=== PATIENT | male | born 1940 | race Caucasian/White ===

== ENCOUNTER 2021-03-17 12:27 | Inpatient (IN) | payer MEDICARE, OTHER ==
[~2021-03-17] VITALS: Ht 172.7 cm; Wt 84.1 kg
[2021-03-17 13:33] LABS: BASOPHILS ABSOLUTE AUTO 0.04 K/mm3 (0.00-0.23); BASOPHILS PERCENT AUTO 0 % (0-2); EOSINOPHILS PERCENT AUTO 0 % (0-6); Hematocrit 50.5 % (37.0-53.0); Hemoglobin 17.3 g/dL (13.5-17.5); IMMATURE GRAN ABSOLUTE AUTO 0.11 K/mm3 (0.00-0.10); IMMATURE GRAN PERCENT AUTO 1 % (0-1); LYMPHOCYTES ABSOLUTE AUTO 0.49 K/mm3 (0.84-5.20); LYMPHOCYTES PERCENT AUTO 3 % (21-46); MONOCYTES ABSOLUTE AUTO 1.52 K/mm3 (0.16-1.47); MONOCYTES PERCENT AUTO 8 % (4-13); Mean Corpuscular HGB 29.7 pg (26.0-34.0); Mean Corpuscular HGB Conc 34.3 g/dL (31.5-36.5); Mean Corpuscular Volume 87 fL (80-100); Mean Platelet Volume 8.7 fL (9.1-12.4); NEUTROPHILS ABSOLUTE AUTO 17.79 K/mm3 (1.96-9.15); NEUTROPHILS PERCENT AUTO 89 % (41-73); Platelet Count 184 K/mm3 (150-400); RDW Coefficient Variation 13.2 % (11.7-14.2); Red Blood Cell Count 5.83 M/mm3 (4.30-5.90); White Blood Cell Count 19.95 K/mm3 (4.00-11.30)
[2021-03-17 13:56] LABS: Alanine Aminotransfer (ALT/SGP 20 U/L (12-78); Albumin, Blood 3.8 g/dL (3.4-5.0); Albumin/Globulin Ratio 1.2 (0.8-1.8); Alk Phos 50 U/L (50-136); Anion Gap 6 mmol/L (6-16); Aspartate Aminotrans (AST/SGOT 22 U/L (12-37); Bilirubin, Total 0.7 mg/dL (0.1-1.0); Blood Urea Nitrogen 14 mg/dL (8-24); Bun/Creatinine Ratio 18.5 (12.0-20.0); CO2, Blood 26 mmol/L (21-32); Calcium, Blood 8.7 mg/dL (8.5-10.1); Chloride, Blood 105 mmol/L (98-108); Creatinine, Blood 0.76 mg/dL (0.60-1.20); Globulin, Blood 3.2 g/dL (2.2-4.0); Glomerular Filtration Rate >60 (60-); Glucose, Blood 108 mg/dL (70-99); Potassium, Blood 4.2 mmol/L (3.5-5.5); Sodium, Blood 137 mmol/L (136-145)
[2021-03-17] MEDS ORDERED: MOBIC15 MG PO (15:16)
[2021-03-17] MEDS ORDERED: ZOCOR20 MG PO (15:16)
[2021-03-17] MEDS ORDERED: LEVSOD100 PO (15:17)
[2021-03-17] MEDS ORDERED: PANT40 PO (15:17)
[2021-03-17] MEDS ORDERED: TRAZ100 PO (15:17)
[2021-03-17] MEDS ORDERED: ZYRTEC10 M2 PO (15:39)
[2021-03-17] MEDS ORDERED: DYMISTA NASAL S23 G1 (15:39)
[2021-03-17] MEDS ORDERED: HYDHCL25 PO (15:40)
[2021-03-17] MEDS ORDERED: Hair, Skin & N1 EACH PO (15:40)
[2021-03-17] MEDS ORDERED: OXYC10TA19 PO (15:41)
[2021-03-17] MEDS ORDERED: HYDR1TAB94 PO (15:42)
[2021-03-17] MEDS ORDERED: BACL10 PO (16:00)
[2021-03-17] MEDS ORDERED: CALCIUM 600 +1 EA11 PO (16:00)
--- NOTE | 2021-03-17 17:50 | NUR ---
PT ARRIVED TO [facility] FLOOR AOX4 AND COOPERATIVE OF CARE. PT IS A STANDBY DUE TO FEELING WEAK. PT CAN CALL APPROPRIATELY. PT DENIES PAIN AT THIS TIME. CALL LIGHT IS WITHIN REACH WILL CONTINUE TO MONITOR.
--- NOTE | 2021-03-17 20:46 | NUR ---
ASSUMED CARE. AOX3, FOLLOWS DIRECTION WELL. DENIES ANY PAIN OR DISCOMFORT AT THIS TIME. STATES HE JUST DOES NOT FEEL GOOD. REPORTS HEADACHE, 4/10 AT THIS TIME. NO NAUSEA, DID HAVE SOME TODAY. BT HYPOACTIVE. TENDER ON PALPITATIONS. ABLE TO GET TO SIDE OF BED TO USE URINAL. IVF INFUSING WITH NO PROBLEM. URINE CLEAR YELLOW. SPOKE TO DR. GONZALEZ WHO ORDERED HIDA SCAN IN AM, AND CLEAR LIQUIDS. GAVE JELLOW AND CRANBERRY JUICE. WILL CONTINUE TO MONITOR. CALL LIGHT IN REACH.
--- NOTE | 2021-03-17 21:21 | NUR ---
TYLENOL GIVE FOR HEADACHE. CONTINUES TO SAY "I DON'T KNOW WHATS GOING ON" BUT IS NOT ABLE TO TELL ME WHAT HE MEANS BY THIS. EXPLAINED TO HIM WHAT IS GOING ON WITH HIM BUT THE HEADACHE IS CAUSING HIM TO BE FUSSY AT THIS TIME. WILL CONTINUE TO MONITOR.
--- NOTE | 2021-03-17 22:00 | NUR ---
HEADACHE IS MUCH BETTER HE STATES. DENIES ANY OTHER NEEDS AT THIS TIME. TOLERATED THE JELLO AND JUICE. WILL CONTINUE TO MONITOR.
--- NOTE | 2021-03-18 | NUR ---
HEADACHE ALMOST GONE HE STATED. STATES HE IS FEELING BETTER. NO NAUSEA NO PAIN. DENIES ANY NEEDS. CALL LIGHT IN REACH. WILL CONTINUE TO MONITOR.
--- NOTE | 2021-03-18 02:00 | NUR ---
PATIENT SLEEPING WITH NO SIGNS OF DISTRESS. WILL CONTINUE TO MONITOR.
--- NOTE | 2021-03-18 04:30 | NUR ---
LAB IN ROOM. STATES HE EMPTIED A FULL URINAL. EMPTIED ANOTHER HALF URINAL. AMOUNT RECORDED. STATES HE IS FEELING FINE THIS MORNING. WILL CONTINUE TO MONITOR.
[2021-03-18 04:58] LABS: International Normalized Ratio 1.16; Prothrombin Time Results 12.4 Sec (9.7-11.5)
[2021-03-18 05:04] LABS: BASOPHILS ABSOLUTE AUTO 0.07 K/mm3 (0.00-0.23); BASOPHILS PERCENT AUTO 0 % (0-2); EOSINOPHILS ABSOLUTE AUTO 0.01 K/mm3 (0.00-0.68); EOSINOPHILS PERCENT AUTO 0 % (0-6); Hematocrit 48.6 % (37.0-53.0); IMMATURE GRAN ABSOLUTE AUTO 0.11 K/mm3 (0.00-0.10); IMMATURE GRAN PERCENT AUTO 1 % (0-1); LYMPHOCYTES ABSOLUTE AUTO 0.75 K/mm3 (0.84-5.20); LYMPHOCYTES PERCENT AUTO 4 % (21-46); MONOCYTES PERCENT AUTO 9 % (4-13); Mean Corpuscular HGB 30.1 pg (26.0-34.0); Mean Corpuscular Volume 86 fL (80-100); Mean Platelet Volume 9.1 fL (9.1-12.4); NEUTROPHILS PERCENT AUTO 87 % (41-73); Platelet Count 171 K/mm3 (150-400); RDW Coefficient Variation 13.2 % (11.7-14.2); RDW Standard Deviation 41.5 fL (35.1-46.3); Red Blood Cell Count 5.64 M/mm3 (4.30-5.90); White Blood Cell Count 21.34 K/mm3 (4.00-11.30)
[2021-03-18 05:25] LABS: Alanine Aminotransfer (ALT/SGP 19 U/L (12-78); Albumin, Blood 3.5 g/dL (3.4-5.0); Albumin/Globulin Ratio 1.1 (0.8-1.8); Alk Phos 51 U/L (50-136); Anion Gap 6 mmol/L (6-16); Aspartate Aminotrans (AST/SGOT 20 U/L (12-37); Bilirubin, Total 1.1 mg/dL (0.1-1.0); Blood Urea Nitrogen 12 mg/dL (8-24); Bun/Creatinine Ratio 14.6 (12.0-20.0); CO2, Blood 25 mmol/L (21-32); Calcium, Blood 8.9 mg/dL (8.5-10.1); Chloride, Blood 109 mmol/L (98-108); Creatinine, Blood 0.82 mg/dL (0.60-1.20); Globulin, Blood 3.2 g/dL (2.2-4.0); Glomerular Filtration Rate >60 (60-); Glucose, Blood 103 mg/dL (70-99); Magnesium, Blood 1.8 mg/dL (1.6-2.4); Potassium, Blood 3.7 mmol/L (3.5-5.5); Sodium, Blood 140 mmol/L (136-145); Total Protein, Blood 6.7 g/dL (6.4-8.2)
--- NOTE | 2021-03-18 06:47 | NUR ---
SHIFT SUMMARY: AOX3, MILD WEAKNESS IN THE LEGS BUT IS ABLE TO GET AROUND. SOME INCONTIENCE T/O THE NIGHT WHEN USING THE URINAL. PAIN STARTED THIS AM, TYLENOL WAS GIVEN. DR. RAMIREZ CALLED AND ORDERED A HIDA SCAN FOR TODAY WHICH WILL NOT BE TILL 1400 IN THE AFTERNOON. NPO AFTER MIDNIGHT. DID HAVE SOME CLEAR LIQUID LAST NIGHT AND TOLERATED IT WELL. NO NAUSEA OR PAIN. IVF INFUSING T/O THE NIGHT. HYPERTENSIVE THIS AM WILL GIVE SOME HYDRALAZINE FOR IT. DENIED ANY CHEST PAIN. ABDOMIN TENDER WITH HYPOACTIVE BT. ANTIBOTICS GIVEN. SLEPT WELL OFF AND ON. CALL LIGHT IN REACH. WILL REPORT TO DAYSHIFT.
--- NOTE | 2021-03-18 11:49 | NUR ---
Surgical site prepped with 2% Chlorhexidine cloth wipe. History, Chart, Medications and Allergies reviewed before start of procedure. Lungs clear T/O to Auscultation. Patient confirms NPO status and agrees with scheduled surgery. Pre-Op teaching done. Pt verbalizes understanding.
--- NOTE | 2021-03-18 12:28 | NUR ---
03/18/21 1228 Bebeto Batista PT ON SCHEDULED ANTIBIOTICS AND RECIEVED PRIOR TO ARRIVAL TO OR.
--- NOTE | 2021-03-18 16:00 | NUR ---
INITIAL ASSESSMENT PATIENT ARRIVED TO UNIT AT 1520 FROM OR AFTER LAPAROSCOPIC ROGERIO. PATIENT VERY ANXIOUS, AGITATED, PULLING AT EVERYTHING UPON ARRIVAL. PATIENT TRANSFERRED TO ICU FROM MEDICAL FLOOR TO CLEAR FROM MEDICATIONS AFTER ROGERIO THAT ARE MAKING HIM CONFUSED AND AGITATED. RESTRAINTS APPLIED. PATIENT HAS TEMP OF 99.7 DEGREES FAHRENHEIT. PATIENT HAS VERY GOOD STRENGTH. PATIENT SATTING 90% AND GREATER ON RA. LUNGS CLEAR IN UPPER LOBES AND DIMINISHED IN LOWER LOBES. PATIENT IN SR TO ST WITH BBB. HR 90S TO 1-TEENS. SBP 160S TO 180S. SCDS PLACED. ABDOMEN MILDLY DISTENDED, TENDER, WITH NORMOACTIVE BS NOTED. DATE OF LAST BM ON THE . PATIENT NPO AT THIS TIME PER CONFUSION AND AGITATION. 4 LAPAROSCOPIC PUNCTURES AND DRESSINGS TO ABD. AURELIO DRAIN TO RLQ PUNCTURE; DRAINING SANGUINEOUS FLUID. AFTER MUCH DIFFICULTY, ABLE TO HELP PATIENT VOID 50 MLS OF BLOODY URINE INTO URINAL. ATTENDS IN PLACE. BLES COOL. FACE REDDENED; REST OF BODY PALE IN COLOR. BED LOW, CALL LIGHT IN REACH. AT BEDSIDE. WILL CONTINUE TO MONITOR PATIENT FREQUENTLY THROUGHOUT SHIFT.
--- NOTE | 2021-03-18 16:08 | NUR ---
PT WENT TO THE OR THIS MORNING FOR SURGERY. HE WAS TRANSFERED TO ICU. REPORT GIVEN TO ICU NURSE
--- NOTE | 2021-03-18 17:20 | NUR ---
DR. LAWRENCE CALLED AND INFORMED THAT PATIENT VERY AGITATED IN BED AND APPEARS TO HAVE TO VOID. PRIMARY NURSE AND CHARGE NURSE HELPED WITH URINAL. 50 MLS OF BLOODY URINE ABLE TO BE CAUGHT IN URINAL. PATIENT TOO AGITATED TO TRY AND CONTINUE. ORDER FOR SARAVIA OBTAINED.
[2021-03-18 17:37] LABS: Source, Urine Catheter
[2021-03-18 17:46] LABS: Appearance, Urine Clear (Clear); Bilirubin, Urine Neg (Neg); Blood, Urine 1+ (Neg); Color, Urine Yellow (P-Yellow); Glucose Qualitative, Urine Neg (Neg); Ketones, Urine 1+ (Neg); Leukocyte Esterase, Urine Neg (Neg); Nitrite, Urine Neg (Neg); Protein, Urine 2+ (Neg); Urobilinogen, Urine NORM (Normal); pH, Urine 6.5 (5.0-8.0)
[2021-03-18 18:11] LABS: Bacteria Not Seen /hpf; Red Blood Cells, Urine 0-2 /hpf (0-2); Squamous Epithelial Cells Rare /hpf (Few); White Blood Cells, Urine 0-2 /hpf (0-5)
--- NOTE | 2021-03-18 18:50 | NUR ---
DR. ESPINOSA AND DR. HERRERATRATE TO ROOM TO CHECK UP ON PATIENT. UPDATED. ORDERS RECEIVED FOR LABS.
--- NOTE | 2021-03-18 19:10 | NUR ---
SHIFT SUMMARY PATIENT HAS REMAINED CONFUSED AND AGITATED. PATIENT CONTINUALLY BE REORIENTED TO SITUATION, PLACE, EVENT, DATE, PERSON, ETC. PATIENT IS VERY STRONG AND CONTINUED TO FIGHT AGAINST RESTRAINTS AND PULL IMPORTANT LINES AND CORDS. PATIENT HAD TMAX OF 100.3 DEGREES FAHRENHEIT. PATIENT HAS REMAINED SATTING 90% AND GREATER. LUNGS CLEAR AND DIMINISHED UPON ARRIVAL AND SINCE HAVE BECOME WHEEZY. BOTH DR. ESPINOSA AND DR. HERRERATRATE AWARE OF WHEEZING AND INCREASED WORK OF BREATHING FROM PATIENT FIGHTING RESTRAINTS. PATIENT HAS REMAINED SR TO ST WITH BBB, HR 90S TO 1-TEENS. SBP 130S TO 180S. PATIENT RIPPED SCDS OFF. NO BM THIS SHIFT. PATIENT REMAINED NPO. AURELIO DRAIN DRAINING LITTLE AMOUNT OF SANGIUNEOUS FLUID. NS INFUSING AT 100 MLS/ HOUR. PATIENT RECEIVING FLAGYL AND LEVAQUIN. HERE TO VISIT FOR SEVERAL HOURS AND [place] ST[place] IF NEED HER. NUMBER ON PAPER CHART. REPORT HAS BEEN GIVEN TO ASSUMING BULL WHEEL WORKER NURSE.
--- NOTE | 2021-03-18 19:25 | NUR ---
UPDATE / DR ESPINOSA: THE PT IS INCREASINGLY AGITATED, PULLING AT ALL LINES & TUBES DESPITE BILAT SOFT WRIST RESTRAINTS IN PLACE. HE IS ANGRY AT STAFF REGARDING RESTRAINTS & DIFFICULT TO REDIRECT AT THIS TIME. THERE IS A LARGE AMNT OF SS DRAINAGE NOTED ON THE PT's BEDSHEET & ON FURTHER EVALUATION, IT IS NOTED THAT THE PT HAS PULLED HIS SANTIAGO DRAIN APPROX 3 INCHES FROM HIS ABDOMEN. THE SUTURE REMAINS IN PLACE & A LARGE LOOP IS NOTED IN THE TUBING. THE BULB IS FULLY INFLATED & IS NO LONGER SUCTIONING. CALL TO DR ESPINOSA REGARDING THIS INCIDENT. HE STS TO REDRESS THE PT's SANTIAGO INSERTION SITE & TO BE PREPARED FOR SOME DRAINAGE TO COME FROM THE SITE TONIGHT, CHANGE THE DRESSING PRN.
[2021-03-18 20:15] LABS: BASOPHILS ABSOLUTE AUTO 0.04 K/mm3 (0.00-0.23); BASOPHILS PERCENT AUTO 0 % (0-2); EOSINOPHILS PERCENT AUTO 0 % (0-6); Hematocrit 44.2 % (37.0-53.0); Hemoglobin 15.2 g/dL (13.5-17.5); IMMATURE GRAN ABSOLUTE AUTO 0.11 K/mm3 (0.00-0.10); IMMATURE GRAN PERCENT AUTO 1 % (0-1); LYMPHOCYTES ABSOLUTE AUTO 0.69 K/mm3 (0.84-5.20); LYMPHOCYTES PERCENT AUTO 3 % (21-46); MONOCYTES ABSOLUTE AUTO 1.85 K/mm3 (0.16-1.47); MONOCYTES PERCENT AUTO 9 % (4-13); Mean Corpuscular HGB 29.7 pg (26.0-34.0); Mean Corpuscular HGB Conc 34.4 g/dL (31.5-36.5); Mean Corpuscular Volume 86 fL (80-100); Mean Platelet Volume 8.8 fL (9.1-12.4); NEUTROPHILS PERCENT AUTO 87 % (41-73); Platelet Count 177 K/mm3 (150-400); RDW Coefficient Variation 13.5 % (11.7-14.2); RDW Standard Deviation 42.7 fL (35.1-46.3); Red Blood Cell Count 5.12 M/mm3 (4.30-5.90); White Blood Cell Count 20.49 K/mm3 (4.00-11.30)
[2021-03-18 20:32] LABS: Alanine Aminotransfer (ALT/SGP 37 U/L (12-78); Albumin, Blood 3.1 g/dL (3.4-5.0); Alk Phos 51 U/L (50-136); Anion Gap 5 mmol/L (6-16); Aspartate Aminotrans (AST/SGOT 63 U/L (12-37); Bilirubin, Total 0.8 mg/dL (0.1-1.0); Blood Urea Nitrogen 14 mg/dL (8-24); Bun/Creatinine Ratio 15.5 (12.0-20.0); CO2, Blood 24 mmol/L (21-32); Calcium, Blood 8.5 mg/dL (8.5-10.1); Chloride, Blood 110 mmol/L (98-108); Creatinine, Blood 0.91 mg/dL (0.60-1.20); Globulin, Blood 3.1 g/dL (2.2-4.0); Glomerular Filtration Rate >60 (60-); Glucose, Blood 97 mg/dL (70-99); Potassium, Blood 3.6 mmol/L (3.5-5.5); Sodium, Blood 139 mmol/L (136-145); Total Protein, Blood 6.2 g/dL (6.4-8.2)
--- NOTE | 2021-03-19 03:14 | NUR ---
PT UPDATE PT UP TO BATHROOM TO ATTEMPT TO HAVE BM, UNSUCCESSFULLY. PT C/O OF CONSTIPATION X2 DAYS. CALL PLACED TO MD MINOR. MD MINOR W/ ORDERS FOR BOWEL CARE.
[2021-03-19 04:56] LABS: BASOPHILS ABSOLUTE AUTO 0.05 K/mm3 (0.00-0.23); BASOPHILS PERCENT AUTO 0 % (0-2); EOSINOPHILS ABSOLUTE AUTO 0.01 K/mm3 (0.00-0.68); EOSINOPHILS PERCENT AUTO 0 % (0-6); Hemoglobin 14.9 g/dL (13.5-17.5); IMMATURE GRAN ABSOLUTE AUTO 0.08 K/mm3 (0.00-0.10); IMMATURE GRAN PERCENT AUTO 1 % (0-1); LYMPHOCYTES ABSOLUTE AUTO 0.92 K/mm3 (0.84-5.20); LYMPHOCYTES PERCENT AUTO 6 % (21-46); MONOCYTES ABSOLUTE AUTO 1.29 K/mm3 (0.16-1.47); MONOCYTES PERCENT AUTO 8 % (4-13); Mean Corpuscular HGB 29.3 pg (26.0-34.0); Mean Corpuscular HGB Conc 33.9 g/dL (31.5-36.5); Mean Corpuscular Volume 86 fL (80-100); Mean Platelet Volume 8.8 fL (9.1-12.4); NEUTROPHILS ABSOLUTE AUTO 14.04 K/mm3 (1.96-9.15); NEUTROPHILS PERCENT AUTO 86 % (41-73); Platelet Count 156 K/mm3 (150-400); RDW Coefficient Variation 13.4 % (11.7-14.2); RDW Standard Deviation 43.2 fL (35.1-46.3); Red Blood Cell Count 5.09 M/mm3 (4.30-5.90); White Blood Cell Count 16.39 K/mm3 (4.00-11.30)
[2021-03-19 05:14] LABS: Alanine Aminotransfer (ALT/SGP 39 U/L (12-78); Albumin, Blood 2.9 g/dL (3.4-5.0); Albumin/Globulin Ratio 0.9 (0.8-1.8); Alk Phos 45 U/L (50-136); Anion Gap 7 mmol/L (6-16); Aspartate Aminotrans (AST/SGOT 54 U/L (12-37); Bilirubin, Total 0.8 mg/dL (0.1-1.0); Blood Urea Nitrogen 13 mg/dL (8-24); Bun/Creatinine Ratio 15.3 (12.0-20.0); CO2, Blood 24 mmol/L (21-32); Calcium, Blood 8.2 mg/dL (8.5-10.1); Chloride, Blood 109 mmol/L (98-108); Creatinine, Blood 0.85 mg/dL (0.60-1.20); Globulin, Blood 3.2 g/dL (2.2-4.0); Glomerular Filtration Rate >60 (60-); Glucose, Blood 111 mg/dL (70-99); Magnesium, Blood 1.8 mg/dL (1.6-2.4); Phosphorus, Blood 1.5 mg/dL (2.5-4.9); Potassium, Blood 3.6 mmol/L (3.5-5.5); Sodium, Blood 140 mmol/L (136-145); Total Protein, Blood 6.1 g/dL (6.4-8.2)
--- NOTE | 2021-03-19 05:25 | NUR ---
TRANFER NOTE PT STARTED OFF SHIFT CONFUSED, AGITATED, PULLING AT LINES. EDUCATED PT ON WHY IT IS IMPORTANT TO NOT PULL AT LINES. REMOVED WRIST RESTRAINTS AT APPROX 2000, PT STATED, "TAKE THESE OFF AND I PROMISE I WONT PULL AT ANYTHING." PT REMAINED ALERT, DID NOT PULL AT LINES. AT 2200, REMOVED SONIA VEST. PT ORIENTED AT THIS TIME. SP02>94% ON RA. TELEMETRY READS SR/ST W/ BBB. HR 90'S. PT HAD ELEVATED BP, MEDICATED W/ HYDRALAZINE PER EMAR X1 THIS SHIFT. PT C/O OF ABD PAIN "WHERE THEY DID MY SURGERY." MEDICATED W/ NORCO X1 THIS SHIFT. PT C/O OF CONSTIPATION, SEE PREVIOUS NOTE. SARAVIA CATHETER DRAINING CLEAR YELLOW URINE TO GRAVITY. PT HAS AURELIO DRAIN, SUCTION NOT WORKING D/T PT PULLING, SEE PREVIOUS NOTE. DRESSING CHANGED X2 THIS SHIFT, DRESSING SATURATED W/ SS FLUID. FLUIDS INFUSING PER EMAR. PT DID NOT SLEEP MUCH DURING NIGHT. REPORT GIVEN TO SURGICAL NURSE. WILL TRANSFER AT THIS TIME.
--- NOTE | 2021-03-19 06:10 | NUR ---
PT TRANSFERRED FROM ICU. VSS ON RA. DENIES PAIN. DENIES CP/PRESSURE, SOB. NO N/V. DRAIN IN PLACE, BULB NOT COMPRESSED. DRESSING IN PLACE CDI. PT A/OX4. IV FLUIDS CONTINUED. ORIENTED TO ROOM, CALL LIGHT W/IN REACH.
--- NOTE | 2021-03-19 18:42 | NUR ---
POTENTIAL THROMBOPHLEBITIS. PT CALLED THIS RN TO NOTIFY THAT REDNESS WAS NOTED TO VEIN. K PHOS AND LEVAQUIN INFUSING. INFUSIONS STOPPED AND IV REMOVED. STATES TO INFUSE THESE MEDICATIONS ONE AT A TIME, ONCE NEW IV IS OBTAINED.
--- NOTE | 2021-03-19 22:53 | NUR ---
SEBASTIAN ONEAL OBTAINED PER Brittany YOUNG ICU SUPERVISOR INDUSTRIAL GARMENT-I STARTED BALANCE OF POTASSIUM PHOS.WILL START LEVOQUIN AFTER K IS COMPLETED.
--- NOTE | 2021-03-20 02:05 | NUR ---
PT C/O HALLUCINATIONS X 2 DAYS. I REVIEWED PROGRESS NOTES WITH SOME MENTION OF AMS.UNCLEAR ETIOLOGY.PT DRINKS BEER, BUT DENIES DAILY DRINKING.TAKES LUCINDA AT HOME, BUT REPORTS MAX DOSE IS OCC BID.I SPOKE WITH DR MINOR WITH THOUGHTS OF POSSIBLE CWA.PT FLUCTUATES SOME ON THE AMNT HE DRINKS, BUT CONSISTENTLY DENIES DAILY DRINKING. PT RECEIVED BALANCE OF LEVAQUIN ONCE IV WAS OBTAINED AND BALANCE OF K WAS ALREADY INFUSED.PT HAS BEEN ON LEVAQUIN DAILY. PHARMACIST REPORTS THAT IT IS POSSIBLE FOR LEVAQUIN TO CAUSE CONFUSION,HALLUCINATIONS AND AGGITATION.I PLACED CALL TO DR MINOR REGARDING THIS AND WAITING RETURN CALL.
--- NOTE | 2021-03-20 02:17 | NUR ---
DR. MINOR INFORMED THAT HALLUCINATIONS COULD POSSIBLY BE CAUSED BY IV LEVAQUIN. NO NEW ORDERS TO DISCONTINUE LEVAQUIN AT THIS TIME.
[2021-03-20 04:40] LABS: Hematocrit 42.1 % (37.0-53.0); Hemoglobin 14.7 g/dL (13.5-17.5); Mean Corpuscular HGB 30.1 pg (26.0-34.0); Mean Corpuscular HGB Conc 34.9 g/dL (31.5-36.5); Mean Corpuscular Volume 86 fL (80-100); Mean Platelet Volume 8.8 fL (9.1-12.4); Platelet Count 169 K/mm3 (150-400); RDW Coefficient Variation 13.6 % (11.7-14.2); RDW Standard Deviation 43.1 fL (35.1-46.3); Red Blood Cell Count 4.89 M/mm3 (4.30-5.90); White Blood Cell Count 10.89 K/mm3 (4.00-11.30)
[2021-03-20 05:07] LABS: Alanine Aminotransfer (ALT/SGP 38 U/L (12-78); Albumin, Blood 2.8 g/dL (3.4-5.0); Albumin/Globulin Ratio 0.9 (0.8-1.8); Alk Phos 47 U/L (50-136); Anion Gap 5 mmol/L (6-16); Aspartate Aminotrans (AST/SGOT 40 U/L (12-37); Bilirubin, Total 0.7 mg/dL (0.1-1.0); Blood Urea Nitrogen 11 mg/dL (8-24); CO2, Blood 28 mmol/L (21-32); Calcium, Blood 8.2 mg/dL (8.5-10.1); Chloride, Blood 108 mmol/L (98-108); Creatinine, Blood 0.84 mg/dL (0.60-1.20); Globulin, Blood 3.2 g/dL (2.2-4.0); Glomerular Filtration Rate >60 (60-); Glucose, Blood 102 mg/dL (70-99); Magnesium, Blood 2.1 mg/dL (1.6-2.4); Phosphorus, Blood 1.8 mg/dL (2.5-4.9); Potassium, Blood 3.5 mmol/L (3.5-5.5); Sodium, Blood 141 mmol/L (136-145)
--- NOTE | 2021-03-20 06:27 | NUR ---
SUMMARY PT REPORTING FEELS BETTER THIS AM.VERB HALLUCINATIONS "MOSTLY RESOLVED CURRENTLY.VERB PLEASED WITH CURRENT STATUS, ALTHOUGH IS STILL HAVING SOME URINARY RETENTION, BUT VERB THIS IS BASELINE.VERB HE IS SCHEDULED TO SEE A DR REGARDING THIS ON 03/25.
--- NOTE | 2021-03-20 10:38 | NUR ---
HALLUCINATIONS/ ELEVATED BP DR. LAWRENCE NOTIFIED OF HALLUCINATIONS DURING THE NIGHT. PT REPORTS MINIMAL HALLUCINATIONS TODAY AND REPORTS IT ONLY HAPPENS WHEN HE CLOSES HIS EYES. ALSO HAD HAD ELEVATED BLOOD PRESSURE, DR. LAWRENCE ORDERED HYDRALAZINE FOR HOME USE TO MANAGE BP.
[2021-03-20] MEDS ORDERED: ACET500 PO (12:50)
[2021-03-20] MEDS ORDERED: BISA10S PR (12:50)
[2021-03-20] MEDS ORDERED: DOCU100 PO (12:51)
[2021-03-20] MEDS ORDERED: HYDRA25 PO (12:52)
[2021-03-20] MEDS ORDERED: LEVOFLOXACIN750 MG PO (12:53)
[2021-03-20] MEDS ORDERED: ONDA4 PO (12:54)
[2021-03-20] MEDS ORDERED: FLAGYL500 M1 PO (12:54)
[2021-03-20] MEDS ORDERED: MIRALAX17 GM PO (12:55)
[2021-03-20] MEDS ORDERED: SENN187 PO (12:55)
[2021-03-20] MEDS ORDERED: VISBIOME PROBI1 EACH PO (12:57)
--- NOTE | 2021-03-20 16:30 | NUR ---
ELEVATED BP AND HR DR. LAWRENCE NOTIFIED OF ELEVATED BP AND HR THIS AFTERNOON. PT WAS GIVEN HYDRALAZINE TO DECREASE HR. PER DR. LAWRENCE CONTINUE WITH DISCHARGE AND EDUCATE PT TO FOLLOW UP WITH PCP WITHIN ONE WEEK. PRESCRIPTION FOR HYDRALAZINE SENT TO PT'S PHARMACY. WILL CONTINUE TO MONITOR UNTIL DISCHARGE HOME.
--- NOTE | 2021-03-20 17:36 | NUR ---
PT COMPLAINS OF 5/10 HEADACHE. PT HAS HR OF 105 AND HEART SOUNDS IRREGULAR. PT REPORTED FEELING "WOOZY" SITTING AT THE EDGE OF THE BED, SHORT OF BREATH WITH ACTIVITY, NO INCREASE SINCE THIS AM IN SHORNESS OF BREATH WITH ACTIVITY. DR. HERRERATRATE NOTIFIED AND OK PER HIM FOR PT TO CONTINUE WITH DISCHARGE HOME; HOWEVER PT MAY REMAIN OVERNIGHT IF HE DOES NOT FEEL SAFE TO GO HOME AT THIS TIME. PT APPEARS SOMEWHAT AGITATED, CALLS FREQUENTLY, FRUSTRATED WITH SMALL TASKS. PT'S FAMILY IS PRESENT TO TAKE HIM HOME IF HE DECIDES TO LEAVE. VSS BP 148/94 HR 105.
--- NOTE | 2021-03-20 18:21 | NUR ---
DISCHARGE PT PROVIDED WITH OPTIONS, HOME VS. STAY ANOTHER NIGHT IN THE HOSPITAL. PT REPORTED FEELING WELL ENOUGH TO GO HOME, AND PT APPEARS STABLE TO DISCHARE. VSS, HR ONLY SLIGHTLY ELEVATED, PT CONTINUES TO COMPLAIN OF HEADACHE BUT APPEARS LESS AGITATED. PT APPEARS ANXIOUS AND REPORTS FEELING ANXIOUS. PT EDUCATED ABOUT DEEP BREATHING TO RELIEVE ANXIETY AND DISTRACTION METHODS. PT'S PRESENT AND ALSO REPORTED CONFIDENT TO TAKE PT HOME. PT ALERT AND ORIENTED. SHORTNESS OF BREATH WITH ACTIVITY BUT PT RECOVERS, RESP EFFORT IMPROVED. PT AND SPOUSE PROVIDED WITH WRITTEN AND VERBAL DISCHARGE INSTRUCTIONS. THEY REPORTED UNDERSTANDING. PT EDUCATED TO FOLLOW UP WITH PCP SOON POSSIBLE BUT WITHIN 1 WEEK. PT REPORTED PAIN MANAGED AT TIME OF DISCHARGE. VSS. PT AND SPOUSE EDUCATED ABOUT NEW MEDICATIONS. PT EDUCATED TO CHECK HIS BLOOD PRESSURE T/O THE DAY AND TAKE HYDRALZINE ORDERED. PT TAKEN OUT IN W/C AT 1827.
== END 2021-03-20 18:27 | disposition home or self-care (01) | DRG 853 ==
LOC: ER 12:27 → ICUW 15:16 → MEDS 15:16 → SURS 15:16 → MEDS 16:34 → ICUW 03-18 15:37 → SURS 03-19 05:41
PROVIDERS: Family Medicine; Nurse Practitioner Acute Care; Student in an Organized Health Care Education/Training Program; Surgery; ADMIT Internal Medicine
PROC: 0FT44ZZ Resection of Gallbladder, Percutaneous Endoscopic Approach (ICD-10-PCS; principal; 2021-03-18 11:30)
DX: A41.9 Sepsis, unspecified organism (principal); J18.9 Pneumonia, unspecified organism; K80.00 Calculus of gallbladder with acute cholecystitis without obstruction; F11.20 Opioid dependence, uncomplicated; R65.20 Severe sepsis without septic shock; K21.9 Gastro-esophageal reflux disease without esophagitis; N40.0 Benign prostatic hyperplasia without lower urinary tract symptoms; E83.39 Other disorders of phosphorus metabolism; G89.29 Other chronic pain; M54.9 Dorsalgia, unspecified; I10 Essential (primary) hypertension; E03.9 Hypothyroidism, unspecified; Z98.890 Other specified postprocedural states; E78.5 Hyperlipidemia, unspecified; Z90.49 Acquired absence of other specified parts of digestive tract; K82.A1 Gangrene of gallbladder in cholecystitis; Z88.8 Allergy status to other drugs, medicaments and biological substances; Z88.1 Allergy status to other antibiotic agents; Z88.0 Allergy status to penicillin; Z79.899 Other long term (current) drug therapy; Z88.5 Allergy status to narcotic agent
CPT/HCPCS: 36415; 51702; 71045; 80053; 81001; 83605; 83690; 83735; 84100; 84443; 85025; 85027; 85610; 87040; 88304; 96365; 96375; 99285-25; A9270; C1751; C9113; J0360; J1100; J1170; J1650; J1956; J2060; J2270; J2405; J2543; J2704; J2765; J3010; J3370; J7030; J7050; J7060; J7120